=== PATIENT | male | born 1935 | race Caucasian/White ===

== ENCOUNTER → 2016-12-20 | Outpatient (CLI) | payer MEDICARE, OTHER | END | disposition home or self-care (01) | LOC: CFH 08:43 | PROVIDERS: ATTEND Internal Medicine Cardiovascular Disease | DX: I42.9 Cardiomyopathy, unspecified (principal); I48.91 Unspecified atrial fibrillation; I51.7 Cardiomegaly; I08.3 Combined rheumatic disorders of mitral, aortic and tricuspid valves | CPT/HCPCS: 93306 ==

== ENCOUNTER → 2017-01-22 | Outpatient (CLI) | payer MEDICARE, OTHER ==
[~2017-01-22] MED LIST: AMINOPHYLLINE 25 MG/ML, 10ML ONE; REGADENOSON 0.4 MG/5 ML SYRINGE ONE
== END | disposition home or self-care (01) ==
LOC: CFH 08:14
PROVIDERS: ATTEND Internal Medicine Cardiovascular Disease
DX: I25.10 Atherosclerotic heart disease of native coronary artery without angina pectoris (principal); I44.7 Left bundle-branch block, unspecified; Z95.1 Presence of aortocoronary bypass graft
CPT/HCPCS: 78452; 93017; A9502; J0280; J2785

== ENCOUNTER → 2017-03-12 | Outpatient (CLI) | payer MEDICARE, OTHER | END | disposition home or self-care (01) | LOC: RAD 13:52 | PROVIDERS: ATTEND Internal Medicine Cardiovascular Disease | DX: I77.810 Thoracic aortic ectasia (principal); I79.0 Aneurysm of aorta in diseases classified elsewhere | CPT/HCPCS: 71275 ==

== ENCOUNTER → 2017-05-09 | Outpatient (CLI) | payer MEDICARE, OTHER | END | disposition home or self-care (01) | LOC: LAB 11:06 | PROVIDERS: ATTEND Family Medicine | DX: I70.0 Atherosclerosis of aorta (principal); M47.894 Other spondylosis, thoracic region | CPT/HCPCS: 71020 ==

== ENCOUNTER 2018-12-26 13:23 | Outpatient (CLI) | payer MEDICARE | END 2018-12-26 23:59 | disposition home or self-care (01) | LOC: CFH 13:23 | PROVIDERS: ATTEND Internal Medicine Cardiovascular Disease | DX: I08.3 Combined rheumatic disorders of mitral, aortic and tricuspid valves (principal); I10 Essential (primary) hypertension; I48.91 Unspecified atrial fibrillation; Z87.891 Personal history of nicotine dependence | CPT/HCPCS: 93306 ==

== ENCOUNTER → 2019-03-02 | Outpatient (CLI) | payer MEDICARE ==
[~2019-03-02] MED LIST changes: -AMINOPHYLLINE 25 MG/ML, 10ML ONE; +OMNIPAQUE 350 MG/ML, 100ML BOTTLE ONE; -REGADENOSON 0.4 MG/5 ML SYRINGE ONE
== END | disposition home or self-care (01) ==
LOC: CFH 10:04
PROVIDERS: ATTEND Internal Medicine Cardiovascular Disease
DX: I77.810 Thoracic aortic ectasia (principal); R91.8 Other nonspecific abnormal finding of lung field
CPT/HCPCS: 71275; 82565; Q9967

== ENCOUNTER 2019-09-09 15:01 | Inpatient (IN) | payer MEDICARE ==
[~2019-09-09] VITALS: Ht 170.2 cm; Wt 95.2 kg
[2019-09-09] MEDS ORDERED: PLEASE ENTER ALLERGIES MC SCH (15:30)
[2019-09-09] MEDS ORDERED: PLEASE ENTER HEIGHT AND WEIGHT MC SCH (15:30)
[2019-09-09] MEDS ORDERED: ALLO300T PO (15:38)
[2019-09-09] MEDS ORDERED: HYDR25TA6 PO (15:38)
[2019-09-09] MEDS ORDERED: CARV3.122 PO (15:38)
[2019-09-09] MEDS ORDERED: DOXY100T PO (15:38)
[2019-09-09] MEDS ORDERED: APIX5TAB PO (15:38)
[2019-09-09] MEDS ORDERED: DILT180C9 PO (15:38)
[2019-09-09 16:06] VITALS: BP 123/52
[2019-09-09] MEDS: SODIUM CHLORIDE 0.9% 1,000 ML IV SCH (16:18)
[2019-09-09] MEDS ORDERED: CEFAZOLIN PMX 1GM/50ML 50 ML IVPB ONE (17:00)
[2019-09-09 18:51] VITALS: BP 133/73
[2019-09-09 18:58] LABS: ANION GAP 7 mmol/L (5-15); CALCIUM 8.8 mg/dL (8.5-10.1); CHLORIDE 104 mmol/L (98-107); CREATININE 0.87 mg/dL (0.7-1.3)
[2019-09-09 19:03] LABS: BASOPHILS # (AUTO) 0.02 x10^3/uL (0-0.1); BASOPHILS % (AUTO) 0 % (0-1); EOSINOPHILS # (AUTO) 0.13 x10^3/uL (0-0.4); EOSINOPHILS % (AUTO) 2 % (1-7); LYMPHOCYTES # (AUTO) 1.03 x10^3/uL (1-3.4); LYMPHOCYTES % (AUTO) 17 % (22-44); MD NO; MEAN CORPUSCULAR HEMOGLOBIN 32.2 pg (27.5-34.5); MEAN CORPUSCULAR HGB CONC 33.2 g/dL (33.2-36.2); MEAN CORPUSCULAR VOLUME 97.1 fL (81-97); MEAN PLATELET VOLUME 7.8 fL (7.4-10.4); MONOCYTES # (AUTO) 0.81 x10^3/uL (0.2-0.8); MONOCYTES % (AUTO) 14 % (2-9); NEUTROPHILS # (AUTO) 3.99 x10^3/uL (1.8-6.8); NEUTROPHILS % (AUTO) 67 % (42-75); PLATELET COUNT 160 x10^3/uL (130-400); RED BLOOD COUNT 5.42 x10^6/uL (4.38-5.82); RED CELL DISTRIBUTION WIDTH 15.5 % (9.4-14.8)
[2019-09-09] MEDS ORDERED: POTASSIUM CHLORIDE 20 MEQ TAB.ER.PRT PO ONE (19:30)
[2019-09-10 01:38] VITALS: BP 128/76
[2019-09-10 05:07] VITALS: BP 131/72
[2019-09-10] MEDS: ASPIRIN 81 MG TABLET EC PO SCH ×2 (05:48→19:59)
[2019-09-10] MEDS: SODIUM CHLORIDE 0.9% 1,000 ML IV SCH ×2 (06:13→14:00)
[2019-09-10 08:23] VITALS: BP 143/72
[2019-09-10] MEDS: HYDROCHLOROTHIAZIDE 25 MG TABLET PO SCH (09:00)
[2019-09-10] MEDS ORDERED: FENTANYL PF 100 MCG/2ML ONE (09:09)
[2019-09-10] MEDS ORDERED: LIDOCAINE 2%, 20ML ONE (09:09)
[2019-09-10] MEDS ORDERED: CEFAZOLIN PMX 1GM/50ML 50 ML ONE (09:09)
[2019-09-10] MEDS ORDERED: CEFAZOLIN 1,000 MG ONE (09:09)
[2019-09-10] MEDS ORDERED: MIDAZOLAM 1 MG/ML, 5ML ONE (09:09)
[2019-09-10] MEDS ORDERED: HOLD MEDICATION MC PRN (10:00)
[2019-09-10] MEDS ORDERED: DOXYCYCLINE 50 MG/5 ML ORAL SUSP PO ONE (11:30)
[2019-09-10] MEDS ORDERED: DOXYCYCLINE 50MG CAPSULE PO SCH ×2 (11:30→14:30)
[2019-09-10 13:45] VITALS: BP 135/84
[2019-09-10] MEDS ORDERED: DOXYCYCLINE 50 MG/5 ML ORAL SUSP PO SCH (14:30)
[2019-09-10] MEDS: CEFAZOLIN PMX 1GM/50ML 50 ML IVPB SCH (17:23)
[2019-09-10] MEDS ORDERED: HYDROcodone/APAP 5/325 TABLET PO PRN (20:30)
[2019-09-10] MEDS ORDERED: ACETAMINOPHEN 325 MG TABLET PO PRN (20:30)
[2019-09-10 20:36] VITALS: BP 146/83
[2019-09-10] MEDS: SODIUM CHLORIDE FLUSH 10ML SYR IVF SCH (21:00)
[2019-09-10] MEDS: LACTOBACILLUS CHEW TABLET PO SCH (21:57)
[2019-09-11 01:21] VITALS: BP 140/80
[2019-09-11] MEDS: CEFAZOLIN PMX 1GM/50ML 50 ML IVPB SCH (01:40)
[2019-09-11 08:13] VITALS: BP 149/80
[2019-09-11] MEDS ORDERED: DOXYCYCLINE 50 MG/5 ML ORAL SUSP PO SCH (09:00)
[2019-09-11] MEDS: SODIUM CHLORIDE FLUSH 10ML SYR IVF SCH (09:00)
[2019-09-11] MEDS: LACTOBACILLUS CHEW TABLET PO SCH (09:20)
[2019-09-11] MEDS: HYDROCHLOROTHIAZIDE 25 MG TABLET PO SCH (09:20)
[2019-09-11] MEDS ORDERED: APIX5TAB PO (09:44)
[2019-09-11] MEDS ORDERED: POTA20TA91 PO (09:45)
[2019-09-11] MEDS ORDERED: DILTIAZEM CD 180 MG CAP.ER.24H PO SCH (10:00)
[2019-09-11] MEDS ORDERED: POTASSIUM CHLORIDE 20 MEQ TAB.ER.PRT PO ONE (10:00)
== END 2019-09-11 11:14 | disposition home or self-care (01) | DRG 243 ==
LOC: 5SO 15:01 → DCLOUNGE 09-11 10:50
PROVIDERS: ADMIT Internal Medicine Cardiovascular Disease; ATTEND Internal Medicine Cardiovascular Disease
PROC: 0JH606Z Insertion of Pacemaker, Dual Chamber into Chest Subcutaneous Tissue and Fascia, Open Approach (ICD-10-PCS; principal; 2019-09-09)
PROC: 02HK3JZ Insertion of Pacemaker Lead into Right Ventricle, Percutaneous Approach (ICD-10-PCS; 2019-09-09)
PROC: 02H63JZ Insertion of Pacemaker Lead into Right Atrium, Percutaneous Approach (ICD-10-PCS; 2019-09-09)
DX: I49.5 Sick sinus syndrome (principal); D68.69 Other thrombophilia; E87.6 Hypokalemia; I10 Essential (primary) hypertension; I48.0 Paroxysmal atrial fibrillation
CPT/HCPCS: 33208; 36415; 71045; 80048; 85025; 93005; 99156; C1779; C1785; C1892; G0378; J0690; J2250; J3010; J7030